=== PATIENT | male | born 1955 | race Caucasian/White ===

== ENCOUNTER 2017-12-11 20:19 | Day surgery (SDC) | payer OTHER ==
[2017-12-11] MEDS ORDERED: LORazepam 2 MG/ML SDV IVPUSH ONE (20:47)
[2017-12-11] MEDS ORDERED: Glucagon,Human Recombinant 1 MG Vial IVPUSH ONE (20:47)
[2017-12-11] MEDS ORDERED: Ondansetron 4 MG/2 ML SDV IVPUSH ONE (20:47)
--- NOTE | 2017-12-11 21:22 | EDM.PDOC ---
ED HPI GENERAL MEDICAL PROBLEM - General Chief Complaint: Gastrointestinal Problem Stated Complaint: WALKER TOMATO STUCK IN THROAT Time Seen by Provider: 12/11/17 20:46 Source of Information: Reports: Patient History Limitations: Reports: No Limitations - History of Present Illness INITIAL COMMENTS - FREE TEXT/NARRATIVE: 62 y/o M presents with walker tomato stuck in his esophagus. States he was eating around 5pm when he swallowed it and it felt like it was stuck. Hasn't been able to swallow liquids or solids since. He's been spitting out his saliva. Has had hx of similar sx previously, last episode around 8 yrs ago, told his esophagus was "twisted", and had a procedure done in [place]. Details unclear. No additional complaint. No pain. No fever/recent illness. No abd pain. - Related Data Allergies Allergy/AdvReac Type Severity Reaction Status Date / Time amoxicillin Allergy Difficulty Verified 12/11/17 20:33 Breathing Home Meds: Home Meds Aspirin [Halfprin] 81 mg PO BRK 06/23/17 [History] Esomeprazole [NexIUM] 40 mg PO ACBREAKFAST 06/23/17 [History] Lisinopril 10 mg PO DAILY 06/23/17 [History] Metoprolol Tartrate 25 mg PO BID 06/23/17 [History] Nitroglycerin 1 tab PO ASDIRECTED PRN 06/23/17 [History] Ticagrelor [Brilinta] 90 mg PO BID 06/23/17 [History] atorvaSTATin [Lipitor] 40 mg PO BEDTIME 06/23/17 [History] ED ROS GENERAL - Review of Systems Review Of Systems: See Below Constitutional: Denies: Fever HEENT: Reports: No Symptoms Respiratory: Denies: Shortness of Breath, Cough Cardiovascular: Denies: Chest Pain GI/Abdominal: Reports: Nausea. Denies: Abdominal Pain Musculoskeletal: Reports: No Symptoms Skin: Reports: No Symptoms Neurological: Reports: No Symptoms Psychiatric: Reports: No Symptoms Hematologic/Lymphatic: Reports: No Symptoms ED EXAM, GI/ABD - Physical Exam Exam: See Below Exam Limited By: No Limitations General Appearance: Alert, WD/WN, No Apparent Distress, Other (spitting saliva into a bag ) Eyes: Bilateral: Normal Appearance Ears: Normal External Exam Nose: Normal Inspection Throat/Mouth: Normal Inspection, Normal Oropharynx, Normal Voice, No Airway Compromise Head: Atraumatic, Normocephalic Neck: Normal Inspection, Supple, Non-Tender, Full Range of Motion Respiratory/Chest: No Respiratory Distress, Lungs Clear, Normal Breath Sounds, Chest Non-Tender Cardiovascular: Normal Peripheral Pulses, Regular Rate, Rhythm GI/Abdominal Exam: Soft, Non-Tender, No Distention. No: Rebound Back Exam: Normal Inspection Extremities: Normal Inspection Neurological: Alert, Oriented, Normal Cognition, No Motor/Sensory Deficits Psychiatric: Normal Affect, Normal Mood Skin Exam: Warm, Dry, Intact, Normal Color, No Rash Course - Vital Signs Last Recorded V/S: Last Vital Signs Temp 36.2 C 12/11/17 22:20 Pulse 56 L 12/11/17 22:20 Resp 19 12/11/17 22:20 BP 119/83 12/11/17 22:20 Pulse Ox 100 12/11/17 22:20 - Orders/Labs/Meds Orders: Active Orders 24 hr Category Date Time Status Patient Status [ADT] Routine ADT 12/11/17 21:50 Active EKG Documentation Completion [RC] STAT Care 12/11/17 21:41 Active Ready for Discharge [RC] PER UNIT ROUTINE Care 12/11/17 22:54 Active Lactated Ringers [Ringers, Lactated] 1,000 ml Med 12/11/17 21:45 Active IV ASDIRECTED Schedule Procedure [COMM] Routine Oth 12/11/17 21:49 Ordered Medication Orders Lactated Ringer's (Ringers, Lactated) 1,000 mls @ 100 mls/hr IV ASDIRECTED LEANNE Last Admin: 12/11/17 21:48 Dose: 100 mls/hr Meds: Medications Generic Name Dose Route Start Last Admin Trade Name Freq PRN Reason Stop Dose Admin Lactated Ringer's 1,000 mls @ 100 mls/hr 12/11/17 21:45 12/11/17 21:48 Ringers, Lactated IV 100 mls/hr ASDIRECTED LEANNE Administration Discontinued Medications Generic Name Dose Route Start Last Admin Trade Name Freq PRN Reason Stop Dose Admin Fentanyl Confirm 12/11/17 21:55 Sublimaze Administered 12/11/17 21:56 Dose 100 mcg .ROUTE .STK-MED ONE Glucagon 1 mg 12/11/17 20:47 12/11/17 21:04 Glucagen IVPUSH 12/11/17 20:48 1 mg ONETIME ONE Administration Lidocaine HCl Confirm 12/11/17 21:55 Xylocaine-Mpf 1% Administered 12/11/17 21:56 Dose 6 mls @ as directed .ROUTE .STK-MED ONE Lorazepam 1 mg 12/11/17 20:47 12/11/17 21:06 Ativan IVPUSH 12/11/17 20:48 1 mg ONETIME ONE Administration Ondansetron HCl 4 mg 12/11/17 20:47 12/11/17 21:01 Zofran IVPUSH 12/11/17 20:48 4 mg ONETIME ONE Administration Propofol Confirm 12/11/17 21:55 Diprivan 20 Ml Administered 12/11/17 21:56 Dose 200 mg .ROUTE .STK-MED ONE Succinylcholine Chloride Confirm 12/11/17 21:55 Succinylcholine In Ns Pf Administered 12/11/17 21:56 Dose 100 mg .ROUTE .STK-MED ONE - Re-Assessments/Exams Free Text/Narrative Re-Assessment/Exam: 12/11/17 21:[address] Jimenez, who requested I activate the OR crew. Patient was given glucagon about 40 minutes ago with no response. Departure - Departure Time of Disposition: 21:21 Disposition: DC/Tfer to [facility] Clinical Impression: Esophageal obstruction due to food impaction - Discharge Information
[2017-12-11] MEDS ORDERED: Lactated Ringers 1,000 ML IV SCH (21:45)
--- NOTE | 2017-12-11 21:45 | PCM.PREANE ---
Preanesthetic Assessment - Anesthesia/Transfusion/Family Hx Anesthesia History: Prior Anesthesia Without Reaction Family History of Anesthesia Reaction: No Transfusion History: No Prior Transfusion(s) Intubation History: Unknown - Review of Systems General: No Symptoms Pulmonary: No Symptoms (quit smoking 1989) Cardiovascular: No Symptoms (CAD with NE noted 6 months ago with 1 stent placed / on blood thinner), Chest Pain (History of chest pain, last nitroglycerin= never used.) Gastrointestinal: No Symptoms (GERD improved since NE 6 months ago.), Difficulty Swallowing Neurological: No Symptoms Other: Reports: None (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 noted per patient.), Easy Bleeding, Easy Bruising, Sinus Problem - Physical Assessment NPO Status Date: 12/11/17 NPO Status Time: 17:00 Pulse: 56 O2 Sat by Pulse Oximetry: 100 Respiratory Rate: 19 Blood Pressure: 119/83 Temperature: 36.2 C Vital Signs: Last Vital Signs Temp 36.2 C 12/11/17 20:30 Pulse 56 L 12/11/17 20:30 Resp 19 12/11/17 20:30 BP 119/83 12/11/17 20:30 Pulse Ox 100 12/11/17 20:30 Height: 1.79 m Weight: 88.451 kg ASA Class: 3E Mental Status: Alert & Oriented x3 Airway Class: Mallampati = 2 Dentition: Reports: Dentures (upper), Partial (lower), Missing Tooth/Teeth Thyro-Mental Finger Breadths: 3 Mouth Opening Finger Breadths: 3 ROM/Head Extension: Full Lungs: Clear to Auscultation, Normal Respiratory Effort Cardiovascular: Regular Rate, Regular Rhythm, No Murmurs - Imaging/EKG Impressions: EKG: SR rate=rate=81, PVC's, Probable anteroseptal infarct, old, borderline ST elevation lateral leads. - Allergies Allergies/Adverse Reactions: Allergies Allergy/AdvReac Type Severity Reaction Status Date / Time amoxicillin Allergy Difficulty Verified 12/11/17 20:33 Breathing - Anesthesia Plan Pre-Op Medication Ordered: Beta Emory Beta Emory: Metoprolol Med Last Dose Date: 12/11/17 Med Last Dose Time: 05:00 - Acknowledgements Anesthesia Type Planned: General Anesthesia, MAC Pt an Appropriate Candidate for the Planned Anesthesia: Yes Alternatives and Risks of Anesthesia Discussed w Pt/Guardian: Yes Pt/Guardian Understands and Agrees with Anesthesia Plan: Yes PreAnesthesia Questionnaire HEENT History: Reports: Impaired Vision Cardiovascular History: Reports: NE, Stents Gastrointestinal History: Reports: Hiatal Hernia Other Gastrointestinal History: Stomach ulcers Genitourinary History: Reports: Renal Calculus Other Genitourinary History: "Vasculitis of the kidney" - Past Surgical History Other Cardiovascular Surgeries/Procedures: Cardiac stents GI Surgical History: Reports: Hernia Repair/Other Other GI Surgeries/Procedures: twisted esophagus Other Musculoskeletal Surgeries/Procedures:: Knee surgery - SUBSTANCE USE Smoking Status *Q: Never Smoker Recreational Drug Use History: No - HOME MEDS Home Medications: Home Meds Aspirin [Halfprin] 81 mg PO BRK 06/23/17 [History] Esomeprazole [NexIUM] 40 mg PO ACBREAKFAST 06/23/17 [History] Lisinopril 10 mg PO DAILY 06/23/17 [History] Metoprolol Tartrate 25 mg PO BID 06/23/17 [History] Nitroglycerin 1 tab PO ASDIRECTED PRN 06/23/17 [History] Ticagrelor [Brilinta] 90 mg PO BID 06/23/17 [History] atorvaSTATin [Lipitor] 40 mg PO BEDTIME 06/23/17 [History] - CURRENT (IN HOUSE) MEDS Current Meds: Current Medications Discontinued Medications Glucagon (Glucagen) 1 mg IVPUSH ONETIME ONE Stop: 12/11/17 20:48 Last Admin: 12/11/17 21:04 Dose: 1 mg Lorazepam (Ativan) 1 mg IVPUSH ONETIME ONE Stop: 12/11/17 20:48 Last Admin: 12/11/17 21:06 Dose: 1 mg Ondansetron HCl (Zofran) 4 mg IVPUSH ONETIME ONE Stop: 12/11/17 20:48 Last Admin: 12/11/17 21:01 Dose: 4 mg
[2017-12-11] MEDS ORDERED: fentaNYL 100 MCG/2 ML SDV ONE (21:55)
[2017-12-11] MEDS ORDERED: Succinylcholine/Normal Saline 100 MG/5 ML Syringe ONE (21:55)
[2017-12-11] MEDS ORDERED: Propofol 200 MG/20 ML SDV ONE (21:55)
[2017-12-11] MEDS ORDERED: Lidocaine 1% 6 ML ONE (21:55)
--- NOTE | 2017-12-11 22:52 | PCM.OPNOTE ---
- General Post-Op/Procedure Note Date of Surgery/Procedure: 12/11/17 Operative Procedure(s): removal of walker tomato via endoscopy Pre Op Diagnosis: abstruction of esophagus due to food Post-Op Diagnosis: obstruction of esophagus due to walker tomato Anesthesia Technique: MAC Primary Surgeon: Rosalio Jimenez EBL in mLs: 0 Complications: None Condition: Good
--- NOTE | 2017-12-11 23:06 | PCM48HPAN ---
Post Anesthesia Note - EVALUATION WITHIN 48HRS OF ANESTHETIC Vital Signs in Normal Range: Yes Patient Participated in Evaluation: Yes Respiratory Function Stable: Yes Airway Patent: Yes Cardiovascular Function Stable: Yes Hydration Status Stable: Yes Pain Control Satisfactory: Yes Nausea and Vomiting Control Satisfactory: Yes Mental Status Recovered: Yes
--- NOTE | 2017-12-11 23:53 | HP ---
DATE OF ADMISSION: 12/11/2017 HISTORY OF PRESENT ILLNESS: This is a 62-year-old who comes in to the emergency room with a tomato stuck in his throat and unable to swallow his saliva. The patient states he has had this problem before about 4 to 5 years ago. He says he has had a twisted esophagus in the past. PAST MEDICAL HISTORY: That of havin. Gastroesophageal reflux. He is on Nexium. 2. He has hypertension. 3. He has a history of coronary artery disease with recent AR 6 months ago and has had bypass. 4. He is on platelet inhibitors. REVIEW OF SYSTEMS: No chest pain, shortness of breath, cough, hoarseness, wheezing, fainting, weakness, numbness, convulsions, or difficulty swallowing. PHYSICAL EXAMINATION: GENERAL: Reveals a temperature of 36, pulse 56, respirations 20, and blood pressure 119/83. HEENT: Eyes: Sclerae white. Extraocular muscle motion normal. Oral cavity: Healthy mucous membrane with mouth and tongue. NECK: Supple. No nodes. No thyromegaly. Trachea midline. LUNGS: Clear. No rales, rhonchi, fremitus, or dullness. HEART: Heart tones regular rate. No S3, S4, jugular venous distention, or murmurs. ABDOMEN: Soft. No tenderness, guarding, or rebound in upper and lower extremities. No angulation deformities. SKIN: Warm and dry. PSYCHIATRIC: Normal. NEUROLOGIC: Oriented x3. No sensorineural deficit. Cranial nerves 3 through 12 are intact. ASSESSMENT: Obstructed esophagus. PLAN: For EGD. Discussed the procedure, risks, and complications. He understands and consents. MMODAL /[id number]
--- NOTE | 2017-12-12 08:02 | OR ---
DATE OF OPERATION: 12/11/2017 SURGEON: Rosalio Jimenez MD PREOPERATIVE DIAGNOSIS: Obstructed esophagus secondary to a walker tomato. POSTOPERATIVE DIAGNOSIS: Obstructed esophagus secondary to a walker tomato. OPERATION PERFORMED: Esophagogastroscopy with removal of walker tomato done under intravenous sedation. DESCRIPTION OF PROCEDURE: The patient was taken to the endoscopy room, placed in supine position, connected to monitoring equipment, given IV sedation, placed in left lateral position. A video Olympus gastroscope was placed in the posterior oropharynx and under direct vision threaded past the cricopharyngeus to where the walker tomato was identified. This was lassoed with a snare with a net and removed. It was indeed obstructing. The scope was then reinserted, showing that it could pass into the stomach without obstruction. The patient tolerated the procedure, sent to recovery room in a stable condition, and asked to follow up with his family doctor in [place]. ANESTHESIA: ESTIMATED BLOOD LOSS: MMODAL /[id number]
== END 2017-12-11 23:59 | disposition home or self-care (01) ==
LOC: JD.ED 20:19 → JD.SDS 21:46
PROVIDERS: ATTEND Surgery
DX: T18.128A Food in esophagus causing other injury, initial encounter (principal); I25.10 Atherosclerotic heart disease of native coronary artery without angina pectoris; I25.2 Old myocardial infarction; I10 Essential (primary) hypertension; K21.9 Gastro-esophageal reflux disease without esophagitis; Z87.891 Personal history of nicotine dependence; Z79.82 Long term (current) use of aspirin; Z79.02 Long term (current) use of antithrombotics/antiplatelets; Z79.899 Other long term (current) drug therapy; Z88.0 Allergy status to penicillin; Z95.5 Presence of coronary angioplasty implant and graft; Z95.1 Presence of aortocoronary bypass graft
CPT/HCPCS: 43247; 93005; 99284; J1610; J2001; J2060; J2405; J3010; J7120; 00731; J0330; J2704

== ENCOUNTER 2023-12-25 21:07 | Day surgery (SDC) | payer MEDICARE, BC ==
[2023-12-25] MEDS: Metoclopramide 10 MG/2 ML SDV IVPUSH ONE (22:11)
[2023-12-25] MEDS: Glucagon,Human Recombinant 1 MG Vial IVPUSH ONE (22:12)
[2023-12-25] MEDS: Nitroglycerin 0.4 MG Tab.SL ONE (23:33)
[2023-12-26] MEDS ORDERED: Propofol 200 MG/20 ML SDV ONE (00:58)
[2023-12-26] MEDS ORDERED: Midazolam 1 MG/ML 2 ML SDV ONE (00:59)
[2023-12-26] MEDS ORDERED: fentaNYL 100 MCG/2 ML SDV ONE (01:03)
[2023-12-26] MEDS ORDERED: fentaNYL 100 MCG/2 ML SDV IVPUSH PRN (02:15)
[2023-12-26] MEDS ORDERED: HYDROmorphone 0.5 MG/0.5 ML Syringe IVPUSH PRN (02:15)
== END 2023-12-26 03:00 | disposition home or self-care (01) ==
LOC: JD.ED 21:07 → JD.SDS 12-26 00:50
PROVIDERS: ATTEND Surgery
DX: T18.128A Food in esophagus causing other injury, initial encounter (principal); K44.9 Diaphragmatic hernia without obstruction or gangrene; Z88.1 Allergy status to other antibiotic agents; Z79.82 Long term (current) use of aspirin; Z79.899 Other long term (current) drug therapy
CPT/HCPCS: 43247; 96374; 96375; 99284; A9270; J1610; J2250; J2704; J2765; J3010; 00731; 99140

== ENCOUNTER 2024-01-10 19:44 | Emergency (ER) | payer MEDICARE, BC ==
[2024-01-10] MEDS: Sodium Chloride 0.9% 1,000 ML IV SCH (20:50)
[2024-01-10] MEDS: Glucagon,Human Recombinant 1 MG Vial IVPUSH ONE (20:51)
[2024-01-10] MEDS: Ondansetron 4 MG/2 ML SDV IVPUSH ONE (20:53)
[2024-01-10] MEDS: Nitroglycerin 0.4 MG Tab.SL SL ONE (20:53)
[2024-01-10] MEDS: Sodium Chloride 0.9% 10 ML Syringe FLUSH PRN (20:53)
[2024-01-10 21:07] LABS: BASOPHILS ABSOLUTE AUTO 0.1 K/mm3 (0.0-0.2); BASOPHILS PERCENT AUTO 1.1 % (0.0-1.0); EOSINOPHILS ABSOLUTE AUTO 0.3 K/mm3 (0.0-0.4); EOSINOPHILS PERCENT AUTO 6.9 % (0.0-6.0); HEMATOCRIT 44.4 % (42.0-52.0); HEMOGLOBIN 14.7 gm/dl (14.0-18.0); IMMATURE GRAN ABSOLUTE AUTO 0.01 K/mm3 (0.00-0.05); IMMATURE GRAN PERCENT AUTO 0.2 % (0.0-0.4); LYMPHOCYTES ABSOLUTE AUTO 2.1 K/mm3 (1.0-4.8); LYMPHOCYTES PERCENT AUTO 47.6 % (24.0-44.0); MEAN CORPUSCULAR HEMOGLOBIN 30.2 pg (28.0-32.0); MEAN CORPUSCULAR HGB CONC 33.1 g/dl (32.0-36.0); MEAN CORPUSCULAR VOLUME 91.4 fl (83.0-99.0); MEAN PLATELET VOLUME 9.7 fl (9.4-12.4); MONOCYTES ABSOLUTE AUTO 0.4 K/mm3 (0.0-0.8); MONOCYTES PERCENT AUTO 10.1 % (0.0-8.0); NEUTROPHILS ABSOLUTE AUTO 1.5 K/mm3 (1.8-7.7); NEUTROPHILS PERCENT AUTO 34.1 % (41.0-71.0); PLATELET COUNT,PLT 162 K/mm3 (150-400); RED BLOOD CELL COUNT 4.86 M/mm3 (4.52-5.90); WHITE BLOOD CELL COUNT,WBC 4.37 K/mm3 (3.9-11.3)
[2024-01-10 21:28] LABS: A/G RATIO 1.1 (1-2); ALBUMIN 3.7 g/dl (3.4-5.0); ANION GAP 13.3 (5-15); BILIRUBIN TOTAL 0.6 mg/dL (0.2-1.0); BUN/CREATININE RATIO 10.7 (14-18); CALCIUM 8.6 mg/dL (8.5-10.1); CREATININE 1.4 mg/dL (0.7-1.3); EST CRCL DRUG DOSING (CG) 51.42 mL/min; POTASSIUM,K 4.3 mEq/L (3.5-5.1); PROTEIN TOTAL,TP 7.2 g/dl (6.4-8.2)
== END 2024-01-10 21:50 | disposition left against medical advice (07) ==
LOC: JD.ED 19:44
DX: T18.128A Food in esophagus causing other injury, initial encounter (principal); Z79.899 Other long term (current) drug therapy; Z88.0 Allergy status to penicillin
CPT/HCPCS: 36415; 71045; 71045-26; 80053; 83690; 85025; 96361; 96374; 99283-25; 99284; A9270-GY; J1610; J3490; J7030